=== PATIENT | female | born 1950 | race Caucasian/White ===

== ENCOUNTER 2022-08-18 17:10 | Outpatient (CLI) | payer MEDICARE | END 2022-08-18 17:11 | disposition home or self-care (01) | LOC: CSHRAD 17:10 | PROVIDERS: ATTEND Nurse Practitioner Family | DX: S89.91XA Unspecified injury of right lower leg, initial encounter (principal); M25.461 Effusion, right knee; S82.144A Nondisplaced bicondylar fracture of right tibia, initial encounter for closed fracture; N39.0 Urinary tract infection, site not specified; R31.9 Hematuria, unspecified | CPT/HCPCS: 87077; 87086; 87186 ==

== ENCOUNTER 2022-12-08 11:21 | Outpatient (CLI) | payer MEDICARE, OTHER | END 2022-12-08 11:22 | disposition home or self-care (01) | LOC: CSHRAD 11:21 | PROVIDERS: ATTEND Nurse Practitioner Family | DX: S46.001A Unspecified injury of muscle(s) and tendon(s) of the rotator cuff of right shoulder, initial encounter (principal) ==